=== PATIENT | female | born 1960 | race Caucasian/White ===

== ENCOUNTER 2018-03-29 12:43 | Emergency (ER) | payer MEDICARE, MEDICAID ==
[~2018-03-29] VITALS: Ht 165.1 cm; Wt 77.3 kg
[2018-03-29] MEDS ORDERED: normal saline 1000ML IV soln IVB ONE ×2 (12:45→15:00)
[2018-03-29] MEDS ORDERED: ondansetron/PF 4mg/2ml inj IV ONE ×2 (12:50→15:00)
[2018-03-29 13:55] LABS: ALANINE AMINOTRANSFERASE 36 U/L (12-78); ALBUMIN 3.7 G/DL (3.4-5.0); ALBUMIN/GLOBULIN RATIO 1.1 (1.1-1.5); ALKALINE PHOSPHATASE 102 IU/L (46-116); ANION GAP 10 (8-16); ASPARTATE AMINO TRANSFERASE 30 U/L (10-37); BILIRUBIN,TOTAL 0.4 MG/DL (0.1-1.0); BLOOD UREA NITROGEN 15 MG/DL (7-18); BUN/CREATININE RATIO 15.2 (6.6-38.0); CALCIUM 8.8 MG/DL (8.5-10.1); CHLORIDE 107 MMOL/L (99-107); CREATININE 0.99 MG/DL (0.40-0.90); GLUCOSE 90 MG/DL (70-104); SODIUM 145 MMOL/L (135-145); TOTAL CARBON DIOXIDE 28.4 MMOL/L (24-32); TOTAL PROTEIN 7.1 G/DL (6.4-8.2); eGFR 58 ML/MIN
[2018-03-29 13:59] LABS: TROPONIN I < 0.04 NG/ML (0.0-0.05)
[2018-03-29 14:29] LABS: CLARITY,URINE CLEAR (Clear); COLOR,URINE STRAW (Yellow); GLUCOSE, URINE NEGATIVE (Neg); KETONES,URINE NEGATIVE (Neg); LEUKOCYTE ESTERASE ,URINE NEGATIVE (Neg); NITRITES, URINE NEGATIVE (Neg); OCCULT BLOOD,URINE NEGATIVE (Neg); PROTEIN,URINE NEGATIVE (Neg); UROBILINOGEN,URINE 0.2 E.U/dL (0.2-1.0)
[2018-03-29 14:30] LABS: UA COLLECTION TYPE STRAIGHT CATH
[2018-03-29 14:52] LABS: BASOPHILS % (AUTO) 0.5 % (0-1); EOSINOPHILS # (AUTO) 0.2 X10'3 (0-0.9); EOSINOPHILS % (AUTO) 3.8 % (0-6); HEMATOCRIT 45.4 % (35.0-45.0); HEMOGLOBIN 14.9 g/dl (12.0-16.0); LYMPHOCYTES # (AUTO) 1.7 X10'3 (1.1-4.8); LYMPHOCYTES % (AUTO) 33.2 % (21-51); MEAN CORPUSCULAR HEMOGLOBIN 29.3 PG (27.0-31.0); MEAN CORPUSCULAR HGB CONC 32.9 % (33.0-36.5); MEAN CORPUSCULAR VOLUME 88.9 FL (78-98); MEAN PLATELET VOLUME 8.1 FL (7.4-10.4); MONOCYTES # (AUTO) 0.3 X10'3 (0-0.9); MONOCYTES % (AUTO) 6.4 % (2-12); NEUTROPHILS # (AUTO) 2.9 X10'3 (1.8-7.7); NEUTROPHILS % (AUTO) 56.1 % (42-75); PLATELET COUNT 224 X10'3 (140-440); RED BLOOD COUNT 5.11 X10'6 (4.20-5.60); RED CELL DISTRIBUTION WIDTH 13.3 % (11.5-14.5); WHITE BLOOD COUNT 5.1 X10'3 (4.5-11.0)
[2018-03-29] MEDS ORDERED: HYDROcodone/acetaminophen 10/325mg tab PO ONE (15:00)
[2018-03-29] MEDS ORDERED: HYDR-4353 PO (15:02)
[2018-03-29 15:10] LABS: PROTHROMBIN TIME 9.9 SECONDS (9.0-12.0)
[2018-03-29 15:46] VITALS: BP 144/80
== END 2018-03-29 16:08 | disposition home or self-care (01) ==
LOC: ER 12:44 → EDBD 12:44 → ER 16:08
DX: S06.0X0A Concussion without loss of consciousness, initial encounter (principal); S00.83XA Contusion of other part of head, initial encounter; R55 Syncope and collapse; R39.198 Other difficulties with micturition; G89.29 Other chronic pain; M54.2 Cervicalgia; M54.5 Low back pain; M54.6 Pain in thoracic spine; I50.9 Heart failure, unspecified; Z88.5 Allergy status to narcotic agent; W01.198A Fall on same level from slipping, tripping and stumbling with subsequent striking against other object, initial encounter; Y93.89 Activity, other specified; Y92.091 Bathroom in other non-institutional residence as the place of occurrence of the external cause; Y99.9 Unspecified external cause status
CPT/HCPCS: 36415; 70450; 71045; 72125; 80053; 81003; 84484; 85025; 85610; 93005; 99284; J7030; P9612; 96360

== ENCOUNTER 2018-04-05 16:20 | Emergency (ER) | payer MEDICARE, MEDICAID ==
[~2018-04-05] VITALS: Ht 165.1 cm; Wt 79.5 kg
[2018-04-05 17:10] LABS: CLARITY,URINE CLOUDY (Clear); COLOR,URINE YELLOW (Yellow); GLUCOSE, URINE NEGATIVE (Neg); KETONES,URINE NEGATIVE (Neg); LEUKOCYTE ESTERASE ,URINE LARGE (Neg); NITRITES, URINE POSITIVE (Neg); OCCULT BLOOD,URINE LARGE (Neg); PH,URINE 5.5 (4.8-8.0); PROTEIN,URINE 30 mg/dl (Neg); UROBILINOGEN,URINE 0.2 E.U/dL (0.2-1.0)
[2018-04-05 17:13] LABS: UA COLLECTION TYPE CLN CATCH MIDSTREAM
[2018-04-05 17:18] LABS: CAL OXALATE CRYSTALS 2+ /HPF (NEGATIVE); SQUAMOUS EPITHELIAL CELL,UR FEW /LPF (FEW); WBC,URINE TNTC /HPF (0-4)
[2018-04-05 17:19] LABS: BACTERIA,URINE 1+ /HPF (Neg)
[2018-04-05] MEDS ORDERED: CIPR-259 PO (17:26)
[2018-04-05 18:02] VITALS: BP 121/62
== END 2018-04-05 18:20 | disposition home or self-care (01) ==
LOC: ER 16:21
DX: S06.0X0D Concussion without loss of consciousness, subsequent encounter (principal); N39.0 Urinary tract infection, site not specified; I50.9 Heart failure, unspecified; G89.29 Other chronic pain; Z88.0 Allergy status to penicillin; Z88.5 Allergy status to narcotic agent; Z88.8 Allergy status to other drugs, medicaments and biological substances; Z79.899 Other long term (current) drug therapy; W01.198D Fall on same level from slipping, tripping and stumbling with subsequent striking against other object, subsequent encounter
CPT/HCPCS: 81001; 87077; 87088; 87186; 99283